=== PATIENT | female | born 1995 | race Caucasian/White ===

== ENCOUNTER 2019-09-25 20:06 | Observation (INO) | payer MEDICAID ==
[2019-09-25] MEDS ORDERED: Acetaminophen 325 MG Tab PO PRN (21:56)
[2019-09-25] MEDS ORDERED: Sodium Chloride 0.9% 10 ML Syringe FLUSH PRN (21:56)
[2019-09-25] MEDS ORDERED: Lactated Ringers 1,000 ML IV SCH (22:00)
[2019-09-25] MEDS ORDERED: Betamethasone Acetate/Betamethasone Sod Phosphate 30 MG/5 ML MDV IM SCH (22:00)
[2019-09-25] MEDS ORDERED: Lactated Ringers 1,000 ML IV ONE (22:03)
[2019-09-25] MEDS ORDERED: Zolpidem 5 MG Tab PO SCH (23:00)
--- NOTE | 2019-09-25 23:35 | HP ---
CHIEF COMPLAINT: "I am having contractions." HISTORY OF PRESENT ILLNESS: Ms. Dobbs is a 24-year-old, 3, para 1-0-1 - 1, female, last menstrual period 01/04/2019, EDC 10/23/2019, EGA 36 weeks gestation, which was consistent with a 6-3/7-week ultrasound. She reported to Labor and Delivery at [facility] in [facility] with increasing force and frequency of contractions. She denied any vaginal bleeding, leakage of fluid, nausea, vomiting, or diarrhea. No fever or chills. No hematochezia, hematemesis, hematuria. No dysuria, frequency, or urgency with urination. No leg pain, leg edema, back pain, or severe abdominal pain. She states the contractions have been going on for the past couple of days, and they have been worsening. She has been seen before for "false labor." She is a patient of Dr. Tea Espinoza. On admission, she was noted to be about 1.5 cm dilated, and she was having some irritability and infrequent contractions. We watched her for a couple of hours and the contractions became stronger and closer together and were seen while on the monitor, and she did have cervical change to 2 cm. So with that, I admitted her for observation. We are going to give her a fluid bolus along with some LR at 125 per hour, along with giving her betamethasone 12 mg IM now, repeat in 24 hours for late labor precautions. Her for the most part has been unremarkable. She did see Dr. Zack Hunt in [place] because of an irregular heart rate noted on ultrasound, but that ended up being no issue, and she has had routine care since. PAST MEDICAL HISTORY: No history of heart disease, hypertension, diabetes, cancer, thyroid disorder, thromboembolic disease, seizure disorder, kidney issues, lung problems, or breast lesions. She has had history of asthma, depression, endometriosis, and anemia. SOCIAL HISTORY: She smokes about a half pack of cigarettes a day, which she has cut down. She denies any alcohol use or illicit drug use. Her significant other is Eleni Clarkea, who is involved. ALLERGIES: Sulfa. MEDICATIONS: vitamins, iron, vitamin C, and Claritin. PAST SURGICAL HISTORY: Laparoscopy for endometriosis. OBSTETRICAL HISTORY: Spontaneous , October 2018, in first trimester. 2016, she had a normal spontaneous vaginal delivery of a viable female at 40 weeks gestation. LABORATORY DATA: Blood type B positive. Antibody screen negative. Rubella immune. Syphilis antibodies nonreactive. Hepatitis B surface antigen nonreactive. HIV nonreactive. Hepatitis C antibody nonreactive. Group B strep vaginal cultures on 09/13/2019 was negative. Normal quad screen, normal 1-hour Glucola, and normal TSH. + Bacterial Vaginosis U/A normal OBJECTIVE: General: Well-developed, well-nourished female, in no acute distress. Vital Signs: Stable, afebrile. Blood pressure 111/70, pulse 86, respirations 18, temperature 98.4. HEENT: Unremarkable. Neck: Supple, without adenopathy or thyromegaly. Lungs: Clear to auscultation. No wheezing, rhonchi, or rales noted. Cardiovascular: Regular rate and rhythm, without murmurs. Abdomen: Soft, gravid, nontender. Fundal height 35 cm. Vertex presentation. heart tones in the 130s to 140s, category 1 strip. Contractions every 2 minutes. Pelvis: Cervix on admission 1.5 cm dilated, 50% effaced, -2 station. Repeated 2 cm, 60%, -2, and softer. No change in 5 hours. Extremities: No edema, erythema, or tenderness noted. Neurological: Sensory and motor intact. LAB's- + Bacterial Vaginosis ASSESSMENT: 1. [id number]-[id number]-[id number] intrauterine . 2. contractions with cervical change noted on admission then stopped changing.. 3. Bacterial Vaginosis PLAN: 1. Admit for observation. 2. 1 L of LR bolus, then 125 per hour. 3. Betamethasone 12 mg IM x1, repeat in 24 hours. 4. Because of her being 36 weeks gestation, she has had some cervical change. I feel covering her with betamethasone with the possibility of delivering within the next 2 weeks is higher. Since she has made cervical change, we will give her the betamethasone. 5. We will discharge to home if contractions stop and her cervix does not change anymore after her observation. 6. The patient to be seen by her provider, Dr. Tea Espinoza, in her office tomorrow. 7. Flagyl 500 mg BID po X 1 week. All questions answered to the patient and her significant other. [facility] /[id number] ASHLIE
[2019-09-26] MEDS ORDERED: metroNIDAZOLE 250 MG Tab PO SCH (00:23)
--- NOTE | 2019-10-29 03:01 | PCM.DCSUM1 ---
Discharge Summary - Hospital Course Free Text/Narrative:: 24 y.o 3 Para 1-0-1-1 female LMP- 01/04/2019 EDC- 10/23/2019 EGA 36 weeks gestation came in with increasing force and frequency of contractions she did have some cervical change and did get IV LR fluid and Betamethasone 12 mg IM. She also had a wet mount showing bacterial vaginosis. Her contractions settled down and she did not change so she was discharged to home and will follow-up with Dr. Tea Dugan tomorrow. ASSESSMENT: 36 1/7 WEEK IUP CONTRACTIONS BACTERIAL VAGINOSIS PLAN: FOLLOW-UP WITH DR. DUGAN FLAGYL 500 MG BID X 7 DAYS. COME IN WITH INCREASING FORCE AND FREQUENCY OF CONTRACTIONS OR VAGINAL BLEEDING/LEAKAGE OF FLUID. Diagnosis: Stroke: No - Discharge Data Discharge Date: 09/26/19 Discharge Disposition: Home, Self-Care 01 Condition: Good - Referral to Home Health Primary Care Physician: Tea Dugan MD - Patient Instructions Diet: Usual Diet as Tolerated Activity: As Tolerated Driving: May Drive Today Showering/Bathing: May Shower Notify Provider of: Fever, Increased Pain, Nausea and/or Vomiting - Discharge Plan *PRESCRIPTION DRUG MONITORING PROGRAM REVIEWED*: No *COPY OF PRESCRIPTION DRUG MONITORING REPORT IN PATIENT GALLITO: No Home Medications: Home Meds Ferrous Sulfate 325 mg PO BID 09/06/19 [History] Pnv No.95/Ferrous Fum/Folic AC [ Vitamin Tablet] 1 tab PO DAILY [History] Oxygen Therapy Mode: Room Air Patient Handouts: Bacterial Vaginosis, [id number], Signs and Symptoms of Labor, Metronidazole tablets or capsules - Discharge Summary/Plan Comment DC Time >30 min.: No - General Info Functional Status: Reports: Pain Controlled, Tolerating Diet, Ambulating, Urinating - Review of Systems General: Reports: No Symptoms HEENT: Reports: No Symptoms Pulmonary: Reports: No Symptoms Cardiovascular: Reports: No Symptoms Gastrointestinal: Reports: No Symptoms Genitourinary: Reports: No Symptoms Musculoskeletal: Reports: No Symptoms Skin: Reports: No Symptoms Neurological: Reports: No Symptoms Psychiatric: Reports: No Symptoms - Patient Data Vitals - Most Recent: Last Vital Signs Temp 96.5 F 09/26/19 04:10 Pulse 88 09/26/19 04:10 Resp 16 09/26/19 04:10 BP 97/58 L 09/26/19 04:10 Pulse Ox Weight - Most Recent: 136 lb Med Orders - Current: Current Medications Discontinued Medications Acetaminophen (Tylenol) 650 mg PO Q6H PRN PRN Reason: mild pain and fever Last Admin: 09/25/19 22:57 Dose: 650 mg Betamethasone Acet/Betameth SodPhos (Celestone Soluspan 6 Mg/Ml) 12 mg IM Q24H [facility] Stop: 09/26/19 22:01 Last Admin: 09/25/19 22:58 Dose: 12 mg Lactated Ringer's (Ringers, Lactated) 1,000 mls @ 125 mls/hr IV ASDIRECTED [facility] Last Admin: 09/25/19 22:51 Dose: 125 mls/hr Lactated Ringer's (Ringers, Lactated) 1,000 mls @ 1,000 mls/hr IV BOLUS ONE Stop: 09/25/19 23:02 Last Admin: 09/25/19 22:03 Dose: 1,000 mls/hr Metronidazole (Metronidazole) 500 mg PO Q12HR [facility] Last Admin: 09/26/19 00:51 Dose: 500 mg Sodium Chloride (Saline Flush) 10 ml FLUSH ASDIRECTED PRN PRN Reason: Keep Vein Open Zolpidem Tartrate (Ambien) 5 mg PO BEDTIME [facility] Last Admin: 09/26/19 04:43 Dose: Not Given - Exam General: Reports: Alert, Oriented, Cooperative, No Acute Distress HEENT: Reports: Pupils Equal, Pupils Reactive, EOMI, Mucous Membr. Moist/[place] Neck: Reports: Supple Lungs: Reports: Clear to Auscultation, Normal Respiratory Effort Cardiovascular: Reports: Regular Rate, Regular Rhythm, No Murmurs GI/Abdominal Exam: Normal Bowel Sounds, Soft, Non-Tender (Female) Exam: Cervical Dilatation (1.5 cm), Fundal Height (36 cm) Back Exam: Reports: Normal Inspection, Full Range of Motion Extremities: Normal Inspection, Normal Range of Motion, Non-Tender, No Pedal Edema Skin: Reports: Warm, Dry, Intact Psy/Mental Status: Reports: Alert, Normal Affect, Normal Mood
== END 2019-09-26 04:30 | disposition home or self-care (01) ==
LOC: DL.OBCHECK 20:06 → DL.OB 21:57
PROVIDERS: ADMIT Obstetrics & Gynecology; ATTEND Family Medicine
DX: O60.03 Preterm labor without delivery, third trimester (principal); O99.513 Diseases of the respiratory system complicating pregnancy, third trimester; O99.343 Other mental disorders complicating pregnancy, third trimester; O99.013 Anemia complicating pregnancy, third trimester; O99.333 Smoking (tobacco) complicating pregnancy, third trimester; O23.593 Infection of other part of genital tract in pregnancy, third trimester; B96.89 Other specified bacterial agents as the cause of diseases classified elsewhere; F32.9 Major depressive disorder, single episode, unspecified; D64.9 Anemia, unspecified; F17.210 Nicotine dependence, cigarettes, uncomplicated; Z3A.36 36 weeks gestation of pregnancy; Z88.2 Allergy status to sulfonamides; Z79.899 Other long term (current) drug therapy
CPT/HCPCS: 36415; 81001; 85025; 87210; 87491; 87591; 96360; 96361; 96372; A9270; G0378; J0702; J7120

== ENCOUNTER 2019-10-15 08:30 | Inpatient (IN) | payer MEDICAID ==
[2019-10-15] MEDS ORDERED: hydrOXYzine HCl 25 MG Tab PO ONE (09:12)
[2019-10-15] MEDS ORDERED: Acetaminophen 325 MG Tab PO ONE (09:12)
[2019-10-15] MEDS ORDERED: Tranexamic Acid 1,000 MG in Sodium Chloride 0.9% 100 ML IV PRN (09:13)
[2019-10-15] MEDS ORDERED: Carboprost Tromethamine 250 MCG/1 ML Amp IM PRN (09:13)
[2019-10-15] MEDS ORDERED: Misoprostol 400 MCG (4 X 100 MCG TAB) RECTAL PRN (09:13)
[2019-10-15] MEDS ORDERED: Methylergonovine 0.2 MG/1 ML Amp IM PRN (09:13)
[2019-10-15] MEDS ORDERED: Lactated Ringers 1,000 ML IV ONE (09:13)
[2019-10-15] MEDS ORDERED: Sodium Chloride 0.9% 10 ML Syringe FLUSH PRN ×2 (09:13→12:36)
[2019-10-15] MEDS ORDERED: Ondansetron 4 MG/2 ML SDV IVPUSH PRN (09:13)
[2019-10-15] MEDS ORDERED: Acetaminophen 325 MG Tab PO PRN ×2 (09:13→12:36)
[2019-10-15] MEDS ORDERED: Lidocaine 1% 30 ML SDV INJECT PRN (09:13)
[2019-10-15] MEDS ORDERED: Oxytocin/Normal Saline 30 UNIT/500 ML BAG IV SCH (09:15)
--- NOTE | 2019-10-15 09:47 | PCM.SN ---
- Free Text/Narrative Note: OB History and Physical 10/15/19 Chief Complaint: contractions HPI: Ivonne is a 24 yo at 38w6d EGA, based on 6w ultrasound, who presents with complaints of contractions. She woke up around 0600 today with worsening contractions. She noted that her pants were wet and she would get a gush of fluid with each contraction. The contractions are coming every 2-3 minutes and are much stronger than the brenda markham she was having. She is having to breath through the contractions and is unable to carry on a conversation during a contraction. She called OB and decided to come in for evaluation. She has been feeling good movement. has been complicated by contractions as well as an irregular heart beat that was evaluated by MFM who reported "Detailed anatomy appears normal with no evidence of arrhythmia". ROS: Negative for headache, nausea, vomiting, diarrhea, fever, chills, hematuria , dysuria, bleeding per vagina. Allergies: sulfa - itching Medications: PNV, Vit C, iron Medical Hx: Depression, h/o chicken pox, asthma, endometriosis Surgical Hx: gallbladder, appendix, tonsils Family Hx: negative for bleeding or clotting disorders, no known genetic defects OB Hx: First baby was vaginal delivery in 2016 after induction of labor, weight almost 8 pounds. Second was a 4w SAB Social Hx: Lives with her daughter. FOB Stan Montes Jr. Smokes cigarettes, denies drinking or recreational drug use. Labs: Blood Type: B Positive Rubella: Immune HBSAg: Nonreactive GBS: Negative Gonorrhea/Chlamydia: Not Detected HIV: Nonreactive RPR: Nonreactive Hep C: Nonreactive AmniSure: positive Physical Exam: Vitals: BP 111/69, HR 102, Temp 96.2 Gen: No distress, breathing through contractions CV: Well-perfused, 2+ distal pulses, regular rate and rhythm, no audible murmurs Resp: Non-labored, symmetrical chest expansion, clear to auscultation Abd: gravid, soft, non tender Ext: Moves all extremities, no edema. SVE: 4/80/-3 FHT: 135, moderate variability, accelerations present, no decelerations noted CTX: Q 1-3 mins Assessment: Ivonne is a 24 yo at 38w6d EGA, based on 6w ultrasound, who presents with complaints of contractions and found to be ruptured and in active labor. Cat I Strip. Plan: - admit to labor and delivery - routine cares - may have intrathecal if/when desired - may use Nitrox if/when desired - will follow closely Stacey Barraza MD
[2019-10-15] MEDS: Lactated Ringers 1,000 ML IV SCH ×3 (09:54→11:18)
[2019-10-15] MEDS ORDERED: fentaNYL 100 MCG/2 ML SDV ONE (10:34)
[2019-10-15] MEDS ORDERED: EPINEPHrine 1 MG/1 ML Amp ONE (10:34)
[2019-10-15] MEDS ORDERED: ePHEDrine 50 MG/ML SDV ONE (11:09)
--- NOTE | 2019-10-15 11:41 | PCM.PRNOTE ---
- Free Text/Narrative Note: Requested to provide analgesia to full term patient in severe pain. Upon entering the room, patient is sitting on edge of bed complaining of severe abdominal/pelvic pain and discomfort. Procedure was discussed with patient including adverse outcomes and expectations. Pt consented to analgesia, SAB/ IT. Pt placed into a proper sitting position. Landmarks for SAB/IT were identified and marked. Hands were washed and appropriate PPE was applied. Back was prepped with betadine x3. A sterile, transparent, fenestrated drape was applied. Excess betadine was removed. Using 3 mL of a 1% lidocaine solution , a skin wheel was placed at the L2/L3 interspace. A 24 ga (4 inch) Pencan spinal needle was inserted until positive for CSF. Negative for heme or paresthesias. Injected fentanyl 20 mcg, sufentanil 20 mcg, and 6 mg of a 0.75% bupivacaine solution with an epi wash. Pt was placed left lateral position for approximately 20 minutes. After 20 minutes, pt developed hypotension (84/52) but was asymptomatic. Normal BP in clinic was 70s and highest is 110 systolic. BP cuff is normal adult size and too large for arm so falsely low. Started to get N/V so gave ephedrine 10mg IVP. BP increased to low 100's systolic but no change in N/V. Gave another dose of ephedrine 10mg IVP. BP up to 116/80's. Still no change with N/V. Pt stated that during last , she vomited the entire time she was pushing. Has a history of N/V. Otherwise, there were zero complications or adverse outcomes. Will continue to monitor. Procedure Date & Time: 10/15/19 [id number]
[2019-10-15] MEDS ORDERED: Oxytocin 10 Units/1 ML SDV IM PRN (12:36)
[2019-10-15] MEDS ORDERED: Zolpidem 5 MG Tab PO PRN (12:36)
[2019-10-15] MEDS ORDERED: Benzocaine/Menthol 20%-0.5% Spray 56 GM Canister TOP PRN (12:36)
[2019-10-15] MEDS ORDERED: Simethicone 80 MG Tab.Chew PO PRN (12:36)
--- NOTE | 2019-10-15 14:41 | PCM.DEL ---
L & D Note - General Info Date of Service: 10/15/19 (1209) Mother's Due Date: 10/23/19 - Delivery Note Labor: Spontaneous Delivery Outcome: Livebirth Delivery Method: Spontaneous Vaginal Delivery-Single Infant Delivery Mode: Spontaneous Presentation: Right Occiput Anterior (KAN) Nuchal Cord: None Anesthesia Type: Intrathecal Amniotic Fluid Description: Clear Episiotomy Type: None Laceration: None Placenta: Intact, Spontaneous Cord: 3 Vessels Estimated Blood Loss: 100 Resuscitation Needed: No [place]: Bulb Syringe, Stimulated, Warmed, [place] Used Score 1 min: 8 Score 5 min: 9 Second Stage Interventions: Reports: Pushing Effectively Delivery Comments (Free Text/Narrative):: Ivonne is a 24 yo at 38w6d EGA, based on 6w ultrasound, who presented with SROM and active labor. Category 1 tracing upon admission. She was dilated to 4 cm upon admission. She progressed without augmentation. Spontaneous rupture of membranes prior to arrival with clear fluid. She was complete at 1202. She began pushing at approximately 1202. Delivered a liveborn female infant. Vigorous with spontaneous cry. Apgars of 8 and 9. weight 3715 g. Placenta delivered spontaneously intact with a 3 vessel cord. IV Pitocin was started shortly after delivery of the placenta. EBL 100 mL. Intact perineum. Hemostasis confirmed. Mother and doing well. Bottle feeding. - General Info Date of Service: 10/15/19 (1209) Functional Status: Reports: Pain Controlled - Patient Data Weight - Most Recent: 61.235 kg - Problem List Review Problem List Initiated/Reviewed/Updated: Yes
[2019-10-15] MEDS: Docusate Sodium 100 MG Cap PO PRN (20:28)
[2019-10-16] MEDS: Ibuprofen 800 MG Tab PO PRN ×3 (00:49→18:10)
[2019-10-16] MEDS ORDERED: Prenatal Multivitamin with Calcium/Folic Acid/Iron Tab PO SCH (09:00)
[2019-10-16] MEDS: Docusate Sodium 100 MG Cap PO PRN (09:28)
--- NOTE | 2019-10-16 10:47 | PCM.SN ---
- Free Text/Narrative Note: Progress Note/Discharge Summary Admit date: 10/15/19 Discharge date: 10/16/19 Delivering Physician: Dr. Barraza Primary Care Physician: Dr. Espinoza Admission Diagnoses: 24yo at 38w6d SROM with active labor Summary of Hospital Course: Ivonne is a 24 yo at 38w6d EGA, based on 6w ultrasound, who presented with SROM and active labor. Category 1 tracing upon admission. She was dilated to 4 cm upon admission. She progressed without augmentation. Spontaneous rupture of membranes prior to arrival with clear fluid. She was complete at 1202. She began pushing at approximately 1202. Delivered a liveborn female . Vigorous infant with spontaneous cry. Apgars of 8 and 9. weight 3715 g. Placenta delivered spontaneously intact with a 3 vessel cord. IV Pitocin was started shortly after delivery of the placenta. EBL 100 mL. Intact perineum. Hemostasis confirmed. Mother and doing well. Bottle feeding. The patient had an unremarkable course. By day 1, the patient was doing well; ambulating, voiding, and tolerating general diet. Her pain was well controlled with oral pain medications, and was she was discharged to home. Admission hemoglobin was 12.2 gm/dL. Discharge Exam: Gen: No distress CV: Well-perfused, 2+ distal pulses Resp: Non-Labored, symmetrical chest expansion Abd: Fundus is firm and below umbilicus. Ext: Moves all extremities well, no edema. Discharge (or Final) Diagnoses: 1. Intrauterine at 38w6d 2. Normal Spontaneous Vaginal Delivery 3. SROM with active labor 4. Bottle feeding Discharge Details: Admission Condition: good Discharged Condition: good Disposition: Home Discharge Medications: over the counter ibuprofen Diet: regular diet Activity: no heavy lifting for 2 weeks, pelvic rest for 6 weeks. Follow-up with Dr. Espinoza in 6-8 weeks for visit. Stacey Barraaz MD
[2019-10-16] MEDS ORDERED: EPINEPHrine 1 MG/1 ML Amp ONE (18:49)
[2019-10-16] MEDS ORDERED: fentaNYL 100 MCG/2 ML SDV ITHECAL ONE (18:49)
== END 2019-10-16 18:50 | disposition home or self-care (01) | DRG 807 ==
LOC: DL.OBCHECK 08:30 → DL.OB 09:15 → OBSVTOIN 12:09
PROVIDERS: ADMIT Family Medicine; ATTEND Family Medicine
PROC: 10E0XZZ Delivery of Products of Conception, External Approach (ICD-10-PCS; principal; 2019-10-15)
PROC: 3E0R3BZ Introduction of Anesthetic Agent into Spinal Canal, Percutaneous Approach (ICD-10-PCS; 2019-10-15)
DX: O99.334 Smoking (tobacco) complicating childbirth (principal); Z37.0 Single live birth; Z3A.38 38 weeks gestation of pregnancy; Z88.2 Allergy status to sulfonamides; F17.210 Nicotine dependence, cigarettes, uncomplicated
CPT/HCPCS: 36415; 51701; 59409; 84112; 85027; 87210; A9270-GY; J0171; J2405; J2590; J3010; J7120